=== PATIENT | female | born 1990 | race Caucasian/White ===

== ENCOUNTER → 2020-09-29 | Outpatient (CLI) | payer OTHER ==
[2020-09-29 12:52] LABS: ALT 21 U/L (4-34); AST 22 U/L (14-36); Albumin 4.7 g/dL (3.5-5.0); Albumin/Globulin Ratio 1.6; Alkaline Phosphatase 82 U/L (38-126); Bilirubin,Unconjugated 0.6 mg/dL (0.0-1.1); Cholesterol 249 mg/dL (<200); Globulin 2.9 g/dL; Glucose 86 mg/dL (74-99); HDL Cholesterol 54 mg/dL (40-60); LDL Cholesterol,Calculated 175 mg/dL (0-99); Total Bilirubin 0.5 mg/dL (0.2-1.3); Total Protein 7.6 g/dL (6.3-8.2); Triglycerides 100 mg/dL (<150)
[2020-09-29 22:21] LABS: Hemoglobin A1C 5.1 % (4.0-6.0)
== END | disposition home or self-care (01) ==
LOC: LABWHC1 11:38
PROVIDERS: ATTEND Obstetrics & Gynecology
DX: E78.5 Hyperlipidemia, unspecified (principal); R73.03 Prediabetes
CPT/HCPCS: 36415; 80061; 80076; 82728; 82947; 83036; 83090; 83525; 86141